=== PATIENT | female | born 2000 | race Caucasian/White ===

== ENCOUNTER 2019-10-17 14:58 | Emergency (ER) | payer BC, OTHER ==
[2019-10-17] MEDS ORDERED: NORMAL SALINE 1000 ML 1,000 ML IV ONE (15:13)
--- NOTE | 2019-10-17 15:13 | ER Document Report ---
ED Medical Screen (RME) - General Stated Complaint: FLU SYMPTOMS Time Seen by Provider: 10/17/19 15:08 Notes: 19-year-old female presents with 5-day history of flulike symptoms. Patient went to urgent care 2 days ago and was told that she had the flu. Per mother patient has progressively gotten worse. States she is coughing up mucus. Patient has felt like she had a fever but has not checked. Patient also has diarrhea. Abdomen soft nontender. Lungs clear to auscultation bilaterally. Regular rate and rhythm. Patient appears dehydrated. I have greeted and performed a rapid initial assessment of this patient. A comprehensive ED assessment and evaluation of the patient, analysis of test results and completion of the medical decision making process with be conducted by additional ED providers. - Related Data Allergies/Adverse Reactions: pseudoephedrine [From Sudafed] Allergy (Verified 10/17/19 15:06)
[2019-10-17 15:55] LABS: A TYPE INFLUENZA AG NEGATIVE (NEGATIVE); B INFLUENZA AG NEGATIVE (NEGATIVE)
--- NOTE | 2019-10-17 16:12 | RADIOLOGY REPORT (SQ) ---
EXAM DESCRIPTION: CHEST 2 VIEWS COMPLETED DATE/TIME: 10/17/2019 4:01 pm REASON FOR STUDY: cough, fever COMPARISON: None. NUMBER OF VIEWS: Two view. TECHNIQUE: Frontal and lateral radiographic views of the chest acquired. LIMITATIONS: None. FINDINGS: LUNGS AND PLEURA: Peribronchial cuffing and interstitial changes. No consolidation, effus ion, or pneumothorax. MEDIASTINUM AND HILAR STRUCTURES: No masses. No contour abnormalities. HEART AND VASCULAR STRUCTURES: Heart normal in size and contour. No evidence for failure. BONES: No acute findings. HARDWARE: None in the chest. OTHER: No other significant finding. IMPRESSION: REACTIVE AIRWAY DISEASE VERSUS VIRAL SYNDROME. NO CONSOLIDATION. TECHNICAL DOCUMENTATION: JOB ID: [id number] [place]-72 2010 [employer]- All Rights Reserved Reading location - IP/workstation name: [employer]
[2019-10-17 16:32] LABS: APPEARANCE,URINE CLEAR; BILIRUBIN,URINE NEGATIVE (NEGATIVE); COLOR,URINE STRAW; GLUCOSE, URINE NEGATIVE (NEGATIVE); KETONES,URINE TRACE mg/dL (NEGATIVE); PROTEIN,URINE NEGATIVE (NEGATIVE); URINE SPECIFIC GRAVITY 1.002; UROBILINOGEN,URINE NEGATIVE mg/dL (<2.0)
[2019-10-17] MEDS ORDERED: KETOROLAC TROMETHAMINE INJ/PF 30 MG/1 ML SDV IV ONE (16:32)
[2019-10-17] MEDS ORDERED: ONDANSETRON HCL INJ/PF 4 MG/2 ML SDV IV ONE (16:32)
--- NOTE | 2019-10-17 16:37 | ER Document Report ---
ED General - General Chief Complaint: Flu Symptoms Stated Complaint: FLU SYMPTOMS Time Seen by Provider: 10/17/19 15:08 Notes: Patient is a 19-year-old white female with a past medical history of autism who presents to the emergency department with a chief complaint of flulike symptoms began 5 days ago. Patient reports on the she began feeling ill. She states she did not think much of it at first but gradually over the next few days began to feel worse. She states she had a productive cough, fevers and diarrhea. She went to an urgent care and was diagnosed with influenza B. States that she was outside of the 48-hour window so she did not receive any antiviral treatments. She was recommended to continue taking [id number] flu symptom medications. She states she has been taking these medicines getting rest and trying to stay hydrated but she is not feeling much better. She does admit that generally she feels better but the cough is not improved. She was concerned so her mother brought her for evaluation. She denies any ongoing fevers or vomiting. No complaints of abdominal pain chest pain or shortness of breath. TRAVEL OUTSIDE OF THE [place] IN LAST 30 DAYS: No - Related Data Allergies/Adverse Reactions: pseudoephedrine [From Synferenced] Allergy (Verified 10/17/19 15:06) Past Medical History - Social History Smoking Status: Never Smoker Chew tobacco use (# tins/day): No Frequency of alcohol use: None Drug Abuse: None Family History: None Patient has suicidal ideation: No Patient has homicidal ideation: No Review of Systems - Review of Systems Constitutional: Fever, Malaise Respiratory: Cough Gastrointestinal: Diarrhea -: Yes All other systems reviewed and negative Physical Exam - Vital signs Vitals: Temp Pulse Resp BP Pulse Ox 98.3 F 91 18 150/92 H 96 10/17/19 15:06 10/17/19 15:06 10/17/19 15:06 10/17/19 15:06 10/17/19 15:06 - General General appearance: Appears well, Alert In distress: None - HEENT Head: Normocephalic, Atraumatic Eyes: Normal Conjunctiva: Normal Extraocular movements intact: Yes Eyelashes: Normal Pupils: PERRL External canal: Normal Tympanic membrane: Normal Sinus: Normal Nasal: Normal Mouth/Lips: Normal Mucous membranes: Normal Pharynx: Normal Neck: Normal - Respiratory Respiratory status: No respiratory distress Chest status: Nontender Breath sounds: Normal Chest palpation: Normal - Cardiovascular Rhythm: Regular Heart sounds: Normal auscultation - Abdominal Inspection: Normal Distension: No distension Bowel sounds: Normal Tenderness: Nontender Organomegaly: No organomegaly - Neurological Neuro grossly intact: Yes Cognition: Normal Orientation: AAOx4 [place] Coma Scale Eye Opening: Spontaneous [place] Coma Scale Verbal: Oriented [place] Coma Scale Motor: Obeys Commands [place] Coma Scale Total: 15 Speech: Normal - Psychological Associated symptoms: Normal affect, Normal mood - Skin Skin Temperature: Warm Skin Moisture: Dry Skin Color: Normal Course - Re-evaluation Re-evalutation: 10/17/19 16:35 Patient does appear mildly dehydrated, she has moist mucous membranes but they are only minimally moist. She is receiving a liter normal saline. The nurse was unable to draw labs off of the IV line placed. She states the patient is autistic and the mother is questioning whether or not we really need blood work. The patient is afebrile, with normal vital signs. Her physical exam is largely within normal limits. She has what appears to be a postinfectious cough with some mild dehydration. Her chest x-ray was negative. At this time I feel it is safe to forego lab work however I did mental health counselor him that if despite our supportive care measures the patient continued to worsen that she would need to return for blood work. They verbalized understood and agreed. Patient will receive Toradol and Zofran IV along with her normal saline. We will continue to monitor and reevaluate after treatment. 10/17/19 17:26 Reevaluation at this time. Patient is received about 850 mL's of normal saline, 30 of Toradol and 4 of Zofran. She sitting up in bed and states that she feels much better. She is stable and appropriate for discharge and outpatient follow- up. I counseled her at length regarding the importance of outpatient follow-up and advised that she return here or any ER immediately with any new, persistent or worsening symptoms. She and her family verbalized understood and agreed. - Vital Signs Vital signs: Temp Pulse Resp BP Pulse Ox 98.3 F 91 18 150/92 H 96 10/17/19 15:06 10/17/19 15:06 10/17/19 15:06 10/17/19 15:06 02/15/20 15:06 - Laboratory Laboratory results interpreted by me: 10/17/19 16:15 Urine Ketones TRACE H Urine Blood LARGE H Discharge - Discharge Clinical Impression: Postinfectious cough, Mild dehydration Condition: Stable Disposition: HOME, SELF-CARE Additional Instructions: Follow-up with your regular doctor in 2 to 3 days for reevaluation. Return here or any ER immediately with any new, persistent or worsening symptoms. Prescriptions: Benzonatate [Tessalon Perles 100 mg Capsule] 200 mg PO Q8HP PRN #30 capsule PRN Reason:
[2019-10-17 18:11] VITALS: BP 120/63
== END 2019-10-17 18:09 | disposition home or self-care (01) ==
LOC: ER 14:58
DX: R05 Cough (principal); E86.0 Dehydration; R50.9 Fever, unspecified; R19.7 Diarrhea, unspecified; R53.81 Other malaise; Z88.8 Allergy status to other drugs, medicaments and biological substances; F84.0 Autistic disorder
CPT/HCPCS: 99283; 96361; 96374; 96375; 87070; 87880; 81001; 87804; 71046; J1885; J2405; J7030